=== PATIENT | female | born 1960 | race Caucasian/White ===

== ENCOUNTER 2024-07-16 16:54 | Emergency (ER) | payer SELFPAY ==
[2024-07-16 16:56] VITALS: BP 152/83; PULSE 81; RESP 20; TEMP 36.9; O2SAT 100
--- NOTE | 2024-07-16 17:03 | PC.NURSE ---
Covid culture sent to lab
[2024-07-16 17:07] VITALS: O2SAT 100
[2024-07-16 17:43] LABS: SARS-CoV-2 RNA PCR Negative (Negative)
[2024-07-16 17:44] LABS: Influenza A QL RT-PCR Negative (Negative); Influenza B QL RT-PCR Negative (Negative); RSV RNA, RT-PCR Negative (Negative)
--- NOTE | 2024-07-16 17:47 | ED.URI ---
HPI - URI/Sore Throat General Chief Complaint: Upper Respiratory Infection Stated Complaint: flu like symptoms Time Seen by Provider: 07/16/24 16:58 Source: patient and family Mode of arrival: ambulatory Limitations: no limitations History of Present Illness HPI Narrative: this is a 64-year-old female presents with a 2 day history of fever and chills with some sinus congestion with no shortness of breath no audible wheezing no chest pain no nausea vomiting or abdominal pain. MD elicited complaint: fever and cough Onset (ago): day(s) Consistency: constant Severity: mild Related Data Home Medications ?Medication ?Instructions ?Recorded ?Confirmed ?Last Taken ?Type citalopram 10 mg tablet 10 mg PO DAILY 07/16/24 07/16/24 Unknown History lisinopril 20 mg tablet 20 mg PO DAILY 07/16/24 07/16/24 Unknown History Allergies Allergy/AdvReac Type Severity Reaction Status Date / Time Sulfa (Sulfonamide Allergy Unknown Unknown Verified 07/16/24 17:03 Antibiotics) Review of Systems Review of Systems: All systems reviewed & are unremarkable except as noted in HPI and below PMFSH Past Medical History Medical History Patient denies medical problems Exam Const: General: no acute distress Nutritional Appearance: well nourished Orientation/consciousness: patient oriented x3 Limitations: no limitations HENMT: Head: normal to inspection Eyes: Conjunctivae: conjunctivae normal Neck: Neck: normal visual inspection Chest: Chest palpation & inspection: normal inspection of the chest Resp: Effort & Inspection: normal respiratory effort Auscultation: clear to auscultation bilaterally Cardio: Rate: regular rate Rhythm: regular rhythm GI: GI Palp: Yes Soft to palpation Auscultation: normal bowel sounds : General: Yes bladder normal to palpation Skin: General skin exam: normal color Rashes: no rashes Neuro: General: patient oriented x3, moves all extremities and no meningeal signs Course Course Emergency Course: patient had a negative COVID RSV a and influenza, advised patient to drink plenty of fluids take Tylenol or Motrin and rest and follow up with primary if symptoms persist or worsen. Vital Signs Vital signs: Vital Signs Temperature 36.9 C 07/16/24 16:56 Pulse Rate 81 07/16/24 16:56 Respiratory Rate 20 07/16/24 16:56 Blood Pressure 152/83 H 07/16/24 16:56 Pulse Oximetry 100 07/16/24 16:56 Oxygen Delivery Room Air 07/16/24 16:56 Temperature 36.9 C 07/16/24 16:56 Pulse Rate 81 07/16/24 16:56 Respiratory Rate 20 07/16/24 16:56 Blood Pressure 152/83 H 07/16/24 16:56 Pulse Oximetry 100 07/16/24 17:07 Oxygen Delivery Room Air 07/16/24 17:07 MDM - URI/Sore Throat Lab Data Labs: Lab Results 07/16/24 Range/Units 16:58 Influenza A (RT-PCR) Negative (Negative) Influenza B (RT-PCR) Negative (Negative) RSV (RT-PCR) Negative (Negative) SARS-CoV-2 RNA (RT-PCR) Negative (Negative) Critical Care Time Critical Care Time Critical Care Time: No Discharge Plan Discharge Clinical Impression: Viral infection Patient Disposition: Home, Self-Care Condition: Stable Instructions: Antibiotic Form, Viral Syndrome (ED) Additional Instructions: Advised to take Tylenol or Motrin drink plenty of fluids and see primary in 1 week for further evaluation and treatment. Patient Language: Amharic Prescriptions: No Action Unable to Obtain Home Medications Follow-up/Referrals: Shanna,DENIZ Lord [Primary Care Provider] - Time of Disposition: 17:50
[2024-07-16 17:54] VITALS: BP 148/80; PULSE 80; RESP 17; TEMP 36.9; O2SAT 100
--- OUTSIDE RECORDS SUMMARY | 2024-07-23 23:25 | XMS_ITS | Data Portability ---
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 Plan of Treatment Reminders Order Date Submit Date Provider Last Modified By Organization Details Last Modified Time Details Appointments None recorded. Lab noninvasiv e colorectal cancer DNA + occult blood screening, stool 2020 021 [facility] (Cologuard Orders Only), [address], [place], [address], 10:37:46 CBC 2021 022 [facility], [facility], [address], [place], [address], 06:13:40 CMP, serum or plasma 2021 022 [facility], [facility], [address], [place], [address], 06:13:39 lipid panel, serum 2021 022 [facility], [address] [place] [address], [address], [place], [address], 06:13:41 noninvasiv e colorectal cancer DNA + occult blood screening, QL, stool 2021 022 EBONI [facility] (Cologuard Orders Only), [address], [place], [address], 2 14:37:31 CBC 2023 024 EBONI [facility], [address] [facility], [place], [address], 4 06:21:03 CMP, serum or plasma 2023 024 [facility], [address] [facility], [place], [address], 4 06:21:02 lipid panel, serum 2023 024 [facility], [address] [place] [address], [facility], [place], [address], 4 06:21:01 HbA1c (hemoglobi n A1c), blood 2023 024 [facility] In-Office Order, Internal Use Only DO Not Attach Compendium DO Not Attach Compendium, Do Not Delete/merge, [id number] 4 10:37:14 Referral None recorded. Procedures None recorded. Surgeries None recorded. Imaging None recorded. Medication Orders lisinopril 20 mg tablet 2020 021 EBONI [facility], [address] [place] [address], [address], 1 10:26:07 citalopram 10 mg tablet 2020 021 [facility], [address] [place] [address], [address], 1 10:26:05 lisinopril 20 mg tablet 2021 022 [facility], [address] [place] [address], [address], 2 11:57:17 citalopram 10 mg tablet 2021 022 [facility], [address] [place] [address], [address], 11:57:13 lisinopril 20 mg tablet 2022 023 [facility] [address] [place], [address], 3 12:23:56 citalopram 10 mg tablet 2022 023 [facility] [address] [place], [address], 3 12:23:58 lisinopril 20 mg tablet 2023 024 [facility] [address] [place], [address], 4 10:27:36 citalopram 10 mg tablet 2023 024 [facility] [address] [place], [address], 4 10:27:36 Patient TargetsNo targets recorded. Patient Instructions Encounter Date Encounter Id Patient Instructions Last Modified By Organization Details Last Modified Time 04/21/2022 [id number] learning about high blood pressure jnanney Not available 04/21/2022 15:36:34 10/14/2022 [id number] A healthy lifestyle: care instructions jnanney Not available 10/14/2022 12:23:51 10/06/2023 [id number] learning about high blood pressure jnanney Not available 10/06/2023 10:22:40 Reason for Referral None Reported. Results Created Date Observation Date Name Description Value Unit Range Abnormal Flag Note LastModifiedBy Organization Detail LastModifiedTime 09/19/2021 COLOG UARD cologuard result Cancel led - Duplic ate Order not applic able Not Available [email or web address] (Cologuard Orders Only) [address], [place], [address], 09/19/2021 14:37:31 09/18/19 22 09/20/2021 COMP. METAB OLIC PANEL (14) glucose 74 mg/dL 65-99 Not Available [facility] ([facility]) [address] [place], [address], 09/20/2021 06:13:39 09/18/19 22 09/20/2021 COMP. METAB OLIC PANEL (14) BUN 17 mg/dL 8-27 Not Available [facility] ([facility]) [address] [place], [address], 09/20/2021 06:13:39 09/18/19 22 09/20/2021 COMP. METAB OLIC PANEL (14) creatinine 0.90 mg/dL 0.57-1 .00 Eff ectiv e Febru carlos manuel 2021 [facility] will begin repor ting the 2020 CKD-E PI creat inine equat ion that estim ates kidne y funct ion witho ut a race varia ble. Not Available [facility] ([facility]) [address] [place], [address], 09/20/2021 06:13:39 09/18/19 22 09/20/2021 COMP. METAB OLIC PANEL (14) eGFR if nonafricn AM 69 mL/mi n/1.7 3 >59 Not Available [facility] ([facility]) [address] [place], [address], 09/20/2021 06:13:39 09/18/19 22 09/20/2021 COMP. METAB OLIC PANEL (14) eGFR if africn AM 80 mL/mi n/1.7 3 >59 In accor dance with recom menda tions from the NKF-A SN Task force , [facility] is in the proce ss of updat ing its eGFR calcu latio n to the 2020 CKD-E PI creat inine equat ion that estim ates kidne y funct ion witho ut a race varia ble. Not Available [facility] ([facility]) [address] [place], [address], 09/20/2021 06:13:39 09/18/19 22 09/20/2021 COMP. METAB OLIC PANEL (14) BUN/creatini ne ratio 19 12-28 Not Available [facility] ([facility]) [address] [place], [address], 09/20/2021 06:13:39 09/18/19 22 09/20/2021 COMP. METAB OLIC PANEL (14) sodium 138 mmol/ L 134-14 4 Not Available [facility] ([facility]) [address] [place], [address], 09/20/2021 06:13:39 09/18/19 22 09/20/2021 COMP. METAB OLIC PANEL (14) potassium 4.7 mmol/ L 3.5-5. 2 Not Available [facility] ([facility]) [address] [place], [address], 09/20/2021 06:13:39 09/18/19 22 09/20/2021 COMP. METAB OLIC PANEL (14) chloride 101 mmol/ L 96-106 Not Available [facility] ([facility]) [address] [place], [address], 09/20/2021 06:13:39 09/18/19 22 09/20/2021 COMP. METAB OLIC PANEL (14) carbon dioxide, total 21 mmol/ L 20-29 Not Available [facility] ([facility]) [address] [place], [address], 09/20/2021 06:13:39 09/18/19 22 09/20/2021 COMP. METAB OLIC PANEL (14) calcium 9.2 mg/dL 8.7-10 .3 Not Available [facility] [address] [facility] [place], [address], 09/20/2021 06:13:39 09/18/19 22 09/20/2021 COMP. METAB OLIC PANEL (14) protein, total 7.4 g/dL 6.0-8. 5 Not Available [facility] ([facility]) [address] [facility], [place], [address], 09/20/2021 06:13:39 09/18/19 22 09/20/2021 COMP. METAB OLIC PANEL (14) albumin 4.4 g/dL 3.8-4. 8 Not Available [facility] ([facility]) [address] [facility] [place], [address], 09/20/2021 06:13:39 09/18/19 22 09/20/2021 COMP. METAB OLIC PANEL (14) globulin, total 3.0 g/dL 1.5-4. 5 Not Available [facility] ([facility]) [address] [facility], [place], [address], 09/20/2021 06:13:39 09/18/19 22 09/20/2021 COMP. METAB OLIC PANEL (14) A/G ratio 1.5 1.2-2. 2 Not Available [facility] ([facility]) [address] [facility] [place], [address], 09/20/2021 06:13:39 09/18/19 22 09/20/2021 COMP. METAB OLIC PANEL (14) bilirubin, total 0.2 mg/dL 0.0-1. 2 Not Available [facility] ([facility]) [address] [facility] [place], [address], 09/20/2021 06:13:39 09/18/19 22 09/20/2021 COMP. METAB OLIC PANEL (14) alkaline phosphatase 91 IU/L 44-121 Not Available [facility]) [address] [facility] [place], [address], 09/20/2021 06:13:39 09/18/19 22 09/20/2021 COMP. METAB OLIC PANEL (14) AST (SGOT) 14 IU/L 0-40 Not Available [facility] ([facility]) [address] [facility], [place], [address], 09/20/2021 06:13:39 09/18/19 22 09/20/2021 COMP. METAB OLIC PANEL (14) ALT (SGPT) 10 IU/L 0-32 Not Available [facility] ([facility]) [address] [facility], [place], [address], 09/20/2021 06:13:39 09/18/19 22 09/19/2021 CBC, PLATE LET, NO DIFFE RENTI AL WBC 7.5 x10e3 /uL 3.4-10 .8 Not Available [facility] ([facility]) [address] [place], [address], 09/20/2021 06:13:40 09/18/19 22 09/19/2021 CBC, PLATE LET, NO DIFFE RENTI AL RBC 4.46 x10e6 /uL 3.77-5 .28 Not Available [facility] ([facility]) [address] [place], [address], 09/20/2021 06:13:40 09/18/19 22 09/19/2021 CBC, PLATE LET, NO DIFFE RENTI AL hemoglobin 14.2 g/dL 11.1-1 5.9 Not Available [facility] ([facility]) [address] [place], [address], 09/20/2021 06:13:40 09/18/19 22 09/19/2021 CBC, PLATE LET, NO DIFFE RENTI AL hematocrit 42.1 % 34.0-4 6.6 Not Available [facility] ([facility]) [address] [place], [address], 09/20/2021 06:13:40 09/18/19 22 09/19/2021 CBC, PLATE LET, NO DIFFE RENTI AL MCV 94 fL 79-97 Not Available [facility] ([facility]) [address] [facility], [place], [address], 09/20/2021 06:13:40 09/18/19 22 09/19/2021 CBC, PLATE LET, NO DIFFE RENTI AL MCH 31.8 pg 26.6-3 3.0 Not Available [facility] ([facility]) [address] [facility], [place], [address], 09/20/2021 06:13:40 09/18/19 22 09/19/2021 CBC, PLATE LET, NO DIFFE RENTI AL MCHC 33.7 g/dL 31.5-3 5.7 Not Available [facility] ([facility]) [address] [facility], [place], [address], 09/20/2021 06:13:40 09/18/19 22 09/19/2021 CBC, PLATE LET, NO DIFFE RENTI AL RDW 13.5 % 11.7-1 5.4 Not Available [facility] ([facility]) [address] [place], [address], 09/20/2021 06:13:40 09/18/19 22 09/19/2021 CBC, PLATE LET, NO DIFFE RENTI AL platelets 278 x10e3 /uL 150-45 0 Not Available [facility] ([facility]) [address] [place], [address], 09/20/2021 06:13:40 09/18/19 22 09/19/2021 CBC, PLATE LET, NO DIFFE RENTI AL NRBC PAPER CLEANER Not Available [facility] ([facility]) [address] [place], [address], 09/20/2021 06:13:40 09/18/19 22 09/20/2021 LIPID PANEL cholesterol, total 210 mg/dL 100-19 9 above high normal Not Available [facility] ([facility]) [address] [place], [address], 09/20/2021 06:13:40 09/18/19 22 09/20/2021 LIPID PANEL triglyceride s 204 mg/dL 0-149 above high normal Not Available [facility] ([facility]) [address] [place], [address], 09/20/2021 06:13:40 09/18/19 22 09/20/2021 LIPID PANEL HDL cholesterol 42 mg/dL >39 Not Available [facility] ([facility]) [address] [place], [address], 09/20/2021 06:13:40 09/18/19 22 09/20/2021 LIPID PANEL VLDL cholesterol jun 36 mg/dL 5-40 Not Available [facility] ([facility]) [address] [place], [address], 09/20/2021 06:13:40 09/18/19 22 09/20/2021 LIPID PANEL LDL chol calc ([facility]) 132 mg/dL 0-99 above high normal Not Available [facility] ([facility]) [address] [place], [address], 09/20/2021 06:13:40 09/18/19 22 09/20/2021 LIPID PANEL comment: PAPER CLEANER Not Available [facility] ([facility]) [address] [place], [address], 09/20/2021 06:13:40 09/18/19 22 09/20/2021 CARDI OVASC ULSINTIA REPOR T interpretati on Note Suppl tiffany billings repor t is avail able. Not Available [facility] ([facility]) [address] [place], [address], 09/20/2021 06:13:41 09/18/19 22 09/20/2021 CARDI SANFORD HUDSON T pdf . Not Available [facility] ([facility]) [address], [place], [address], 09/20/2021 06:13:41 10/06/19 24 10/06/2023 LIPID PANEL cholesterol, total 202 mg/dL 100-19 9 above high normal Not Available [address], [address], 10/07/2023 06:21:01 10/06/19 24 10/06/2023 LIPID PANEL triglyceride s 167 mg/dL 0-149 above high normal Not Available [address], [address], 10/07/2023 06:21:01 10/06/19 24 10/06/2023 LIPID PANEL HDL cholesterol 37 mg/dL 40-999 below low normal Not Available [address], [address], 10/07/2023 06:21:01 10/06/1910/06/2023 LIPID PANEL VLDL cholesterol jun 33 mg/dL 5-40 Not Available [address], [address], 10/07/2023 06:21:01 10/06/19 24 10/06/2023 LIPID PANEL LDL chol calc ([facility]) 155 mg/dL 0-99 above high normal Not Available [address], [address], 10/07/2023 06:21:01 10/06/19 24 10/06/2023 COMP. METAB OLIC PANEL (14) glucose 95 mg/dL 70-99 Not Available [address], [address], 10/07/2023 06:21:02 10/06/19 24 10/06/2023 COMP. METAB OLIC PANEL (14) BUN 18 mg/dL 8-27 Not Available [facility] & [address], [address], 10/07/2023 06:21:02 10/06/19 24 10/06/2023 COMP. METAB OLIC PANEL (14) creatinine 1.02 mg/dL 0.76-1 .27 Not Available [address], [address], 10/07/2023 06:21:02 10/06/19 24 10/06/2023 COMP. METAB OLIC PANEL (14) eGFR 62 >=60 Units for eGFR value s are mL/mi n/1.7 3 The eGFR Calcu latio n has not been valid ated for patie nts under the age of 18. If test resul ts are displ ayed for a patie nt under the age of 18, disre nimco that value . Not Available [facility] & [address], [address], 10/07/2023 06:21:02 10/06/19 24 10/06/2023 COMP. METAB OLIC PANEL (14) BUN/creatini ne ratio 18 10-28 Not Available [address], [address], 10/07/2023 06:21:02 10/06/19 24 10/06/2023 COMP. METAB OLIC PANEL (14) sodium 143 mmol/ L 134-14 4 Not Available [address], [address], 10/07/2023 06:21:02 10/06/19 24 10/06/2023 COMP. METAB OLIC PANEL (14) potassium 4.8 mmol/ L 3.5-5. 2 Not Available [address], [address], 10/07/2023 06:21:02 10/06/19 24 10/06/2023 COMP. METAB OLIC PANEL (14) chloride 106 mmol/ L 96-106 Not Available [address], [address], 10/07/2023 06:21:02 10/06/19 24 10/06/2023 COMP. METAB OLIC PANEL (14) carbon dioxide, total 24 mmol/ L 20-29 Not Available [address], [address], 10/07/2023 06:21:02 10/06/19 24 10/06/2023 COMP. METAB OLIC PANEL (14) calcium 9.2 mg/dL 8.7-10 .3 Not Available [address], [address], 10/07/2023 06:21:02 10/06/19 24 10/06/2023 COMP. METAB OLIC PANEL (14) protein, total 7.2 g/dL 6.0-8. 5 Not Available [address], [address], 10/07/2023 06:21:02 10/06/19 24 10/06/2023 COMP. METAB OLIC PANEL (14) albumin 4.1 g/dL 3.8-4. 8 Not Available [address], [address], 10/07/2023 06:21:02 10/06/19 24 10/06/2023 COMP. METAB OLIC PANEL (14) globulin, total 3.1 g/dL 1.5-4. 5 Not Available [address], [address], 10/07/2023 06:21:02 10/06/19 24 10/06/2023 COMP. METAB OLIC PANEL (14) A/G ratio 1.0 1.2-2. 2 below low normal Not Available [address], [address], 10/07/2023 06:21:02 10/06/19 24 10/06/2023 COMP. METAB OLIC PANEL (14) bilirubin, total 0.3 mg/dL 0.0-1. 2 Not Available [address], [address], 10/07/2023 06:21:02 10/06/19 24 10/06/2023 COMP. METAB OLIC PANEL (14) alkaline phosphatase 97 IU/L 44-121 Not Available [address], [address], 10/07/2023 06:21:02 10/06/19 24 10/06/2023 COMP. METAB OLIC PANEL (14) AST (SGOT) 17 IU/L 0-40 Not Available [address], [address], 10/07/2023 06:21:02 10/06/19 24 10/06/2023 COMP. METAB OLIC PANEL (14) ALT (SGPT) 14 IU/L 0-32 Not Available [address], [address], 10/07/2023 06:21:02 10/06/19 24 10/06/2023 CARDI OVASC ULAR REPOR T interpretati on Note Suppl ement al repor t is avail able. Not Available [address], [address], 10/07/2023 06:21:03 10/06/19 24 10/06/2023 CARDI OVASC ULAR REPOR T pdf . Not Available [address], [address], 10/07/2023 06:21:03 10/06/19 24 10/06/2023 CBC, PLATE LET, NO DIFFE RENTI AL WBC 7.8 x10e3 /uL 3.4-10 .8 Not Available [address], [address], 10/07/2023 06:21:03 10/06/19 24 10/06/2023 CBC, PLATE LET, NO DIFFE RENTI AL RBC 4.50 x10e6 /uL 3.77-5 .28 Not Available [address], [address], 10/07/2023 06:21:03 10/06/19 24 10/06/2023 CBC, PLATE LET, NO DIFFE RENTI AL hemoglobin 14.2 g/dL 11.1-1 5.9 Not Available [address], [address], 10/07/2023 06:21:03 10/06/1910/06/2023 CBC, PLATE LET, NO DIFFE RENTI AL hematocrit 44.2 % 34.0-4 6.6 Not Available [address], [address], 10/07/2023 06:21:03 10/06/19 24 10/06/2023 CBC, PLATE LET, NO DIFFE RENTI AL MCV 98 fL 79-97 above high normal Not Available [address], [address], 10/07/2023 06:21:03 10/06/1910/06/2023 CBC, PLATE LET, NO DIFFE RENTI AL MCH 31.6 pg 26.6-3 3.0 Not Available [address], [address], 10/07/2023 06:21:03 10/06/19 24 10/06/2023 CBC, PLATE LET, NO DIFFE RENTI AL MCHC 32.1 g/dL 31.5-3 5.7 Not Available [address], [address], 10/07/2023 06:21:03 10/06/19 24 10/06/2023 CBC, PLATE LET, NO DIFFE RENTI AL RDW 13.4 % 11.5-1 4.5 Not Available [address], [address], 10/07/2023 06:21:03 10/06/19 24 10/06/2023 CBC, PLATE LET, NO DIFFE RENTI AL platelets 285 x10e3 /uL 150-45 0 Mean Plate let Volum e 10.9 fL 8.9-1 2.7 N Not Available [address], [address], 10/07/2023 06:21:03 10/06/19 24 10/06/2023 CBC, PLATE LET, NO DIFFE RENTI AL NRBC 0 % 0-0 Not Available [address], [address], 10/07/2023 06:21:03 10/06/19 24 10/06/2023 HbA1c (hemo globi n A1c), blood HbA1c 5.8 Not Available In-Office Order Internal Use Only DO Not Attach Compendium DO Not Attach Compendium, Do Not Delete/merge, [id number] 10/06/2023 10:23:04 Result Notes None recorded. Problems Name Problem SNOMED Code Status Onset Date Resolution Date Notes Provider Name and Address Organization Details Recorded Time Essential hypertension 50139213 Active 2020 Olga Otero PA-C Attn: Jean g,[address] [place], [address], [facility] - SI 10:16:22 Depressive disorder 53507488 Active Olga Otero PA-C Attn: Jean burt,[address], [place], [address], [facility] 6 12:56:11 Hand wart 922322402 Active Olga Otero PA-C Attn: Jean burt,[address], [place], [address], [facility] 6 12:56:11 Problem Notes None recorded. Procedures Surgical History Date Name Laterality Status Provider Name and Address Organization Details Recorded Time Tonsillectomy completed Marsha Henriquez MA [facility] 07/25/2014 15:02:56 Other completed Marsha Henriquez MA [facility] 07/25/2014 15:02:56 Imaging Results None recorded. Procedure Notes None recorded. Medical Equipment None Reported. Allergies Allergen ID Allergen Name Allergen Category Reaction Reaction Severity Criticality Documentation Date Start Date Code Code System Note Provider Name and Address Organization Details Recorded Time 80803 Substance with sulfonami de structure and antibacte rial mechanism of action (substanc e) medicatio n Not available Not available Not available 07/25/2014 25246 8003 SNOMED Marsha Henriquez MA null, [facility] 4 15:02:56 Medications Name Sig Start Date Stop Date Status Note LastModified by Organization Details LastModified Time citalopram 10 mg tablet TAKE 1 TABLET BY MOUTH ONCE DAILY active Not Available Not Available No t Available Keflex 500 mg capsule Take 1 capsule every 8 hours by oral route for 10 days. 03/31 completed Not Available Not Available Not Available lisinopril 20 mg tablet TAKE 1 TABLET BY MOUTH ONCE DAILY active Not Available Not Available No t Available ciprofloxaci n 500 mg tablet Take 1 tablet every 12 hours by oral route for 10 days. 02/20 completed Not Available Not Available Not Available amoxicillin 500 mg tablet Take 1 tablet every 8 hours by oral route for 10 days. 04/15 completed Not Available Not Available Not Available Vitals Date Recorded Body height Body temperature Oxygen saturation Oxygen saturation in Arterial blood by Pulse oximetry Heart rate Body mass index (BMI) Body weight Systolic blood pressure Diastolic blood pressure Provider Name and Address Organization Details Last Updated DateTime 1 157.48 cm 97.3 [degF] 97 % 97 % 81 /min 24.2 kg/m2 82397.9 9 g 122 mm[Hg] 80 mm[Hg] Melody Linares MA [facility] 1 10:12:23 Date Recorded Body height Body temperature Oxygen saturation Oxygen saturation in Arterial blood by Pulse oximetry Heart rate Body mass index (BMI) Body weight Systolic blood pressure Diastolic blood pressure Provider Name and Address Organization Details Last Updated DateTime 2 157.48 cm 97.7 [degF] 99 % 99 % 79 /min 24.1 kg/m2 46248.1 9 g 124 mm[Hg] 78 mm[Hg] Simran conley MA [facility] 2 11:29:32 Date Recorded Body height Body mass index (BMI) Body weight Body temperature Oxygen saturation Oxygen saturation in Arterial blood by Pulse oximetry Heart rate Systolic blood pressure Diastolic blood pressure Provider Name and Address Organization Details Last Updated DateTime 2 157.48 cm 25.4 kg/m2 49420.3 4 g 97.2 [degF] 98 % 98 % 87 /min 122 mm[Hg] 60 mm[Hg] Marsha june MA [facility] 2 15:24:15 Date Recorded Body height Body mass index (BMI) Body weight Oxygen saturation Oxygen saturation in Arterial blood by Pulse oximetry Heart rate Body temperature Systolic blood pressure Diastolic blood pressure Provider Name and Address Organization Details Last Updated DateTime 3 157.48 cm 25.2 kg/m2 99698.7 5 g 98 % 98 % 104 /min 98.2 [degF] 138 mm[Hg] 77 mm[Hg] Marsha june MA [facility] 3 12:14:18 Date Recorded Body height Body mass index (BMI) Body weight Oxygen saturation Oxygen saturation in Arterial blood by Pulse oximetry Heart rate Systolic blood pressure Diastolic blood pressure Provider Name and Address Organization Details Last Updated DateTime 4 157.48 cm 24.6 kg/m2 35601.4 8 g 98 % 98 % 84 /min 160 mm[Hg] 79 mm[Hg] Jeanie Dominguez MA [facility] 4 10:08:45 Social History Question Answer Notes LastModified by Organizat ion Details LastModified Time Tobacco Smoking Status Current Every Day Smoker Marsha Henriquez MA null, [facility] 07/25/2014 15:02:55 Do You Have An Advance Directive? No Information not available 10/24/2020 What Is Your Level Of Alcohol Consumption? None Information not available 07/25/2020 Are You Blind Or Do You Have Difficulty Seeing? No Information not available 10/24/2020 What Is Your Level Of Caffeine Consumption? Occasional Information not available 04/21/2022 How Much Tobacco Do You Chew? None Information not available 07/05/2019 In The 14 Days Before Symptom Onset, Have You Had Close Contact With A Laboratory-confir med COVID-19 While That Case Was Ill? No Information not available 10/24/2020 In The 14 Days Before Symptom Onset, Have You Had Close Contact With A Person Who Is Under Investigation For COVID-19 While That Person Was Ill? No Information not available 10/24/2020 Have You Been To An Area Known To Be High Risk For COVID-19? No Information not available 10/24/2020 Are You Currently Employed? Yes Information not available 07/25/2020 Are You Deaf Or Do You Have Serious Difficulty Hearing? No Information not available 10/24/2020 What Type Of Diet Are You Following? REGULAR Information not available 07/25/2020 Do You Or Have You Ever Used E-cigarettes Or Vape? Never Used Electronic Cigarettes Information not available 07/05/2019 What Is Your Occupation? [employer] Information not available 04/21/2022 Live Alone Or With Others? With Others Information not available 07/25/2020 What Was The Date Of Your Most Recent Tobacco Screening? 10/06/2023 Information not available 10/06/2023 What Is Your Relationship Status? Information not available 10/24/2020 Do You Use Your Seat Belt Or Car Seat Routinely? Yes Information not available 10/24/2020 Do You Have Smoke And Carbon Monoxide Detectors In Your Home? Yes Information not available 02/20/2021 At What Age Did You Start Smoking Tobacco? 23 Information not available 07/05/2019 Are You Passively Exposed To Smoke? Yes Information no t available 02/20/2021 Do You Or Have You Ever Used Smokeless Tobacco? Never Used Smokeless Tobacco Information not available 07/05/2019 How Much Tobacco Do You Smoke? 1 PPD Information not available 07/05/2019 General Stress Level Low Information not available 07/25/2020 Do You Feel Stressed (tense, Restless, Nervous, Or Anxious, Or Unable To Sleep At Night)? CK9969-3 Information not available 04/21/2022 Do You Use Any Illicit Or Recreational Drugs? No Information not available 10/24/2020 Has Tobacco Cessation Counseling Been Provided? Yes Information not available 02/20/2021 On What Date Was Tobacco Cessation Counseling Provided? 10/06/2023 Information not available 10/06/2023 How Many Years Have You Smoked Tobacco? 34 Information not available 07/05/2019 Do You Or Have You Ever Used Any Other Forms Of Tobacco Or Nicotine? No Information not available 10/24/2020 Sex: Unknown Functional Status Question Answer Note LastModified by Organization D etails LastModified Time Are you able to care for yourself? Yes Information n ot available 07/25/2020 Mental Status None recorded. Family History Relationship Description Onset Age of this Age Resolved Age Notes LastModified by Organization Details LastModified Time Mother Hypertensive disorder [email or web address] Not available 04/26 12:26:46 Medical History Condition Response Coronary Artery Disease N Other N Atrial Fibrillation N High Blood Pressure Y Depression Y COPD N Blood Clots N Anxiety Disorder N Muscle, Joint, or Bone Problems N Acid Reflux (GERD) N Cancer N Stroke N Headaches N Kidney or Bladder Problems N Eating Disorder N Skin Problems N Asthma N Allergies N Substance Abuse N Hepatitis N ADHD N High Cholesterol N Liver Disease N Schizophrenia N Thyroid Problems N GI Problems N Anemia N Heart Attack (GA) N Diabetes N Seizures/Epilepsy N Heart Failure N Osteoporosis N Gynecological History Statement/Question Response Date of Last Pap Smear Date of Last Mammogram Obstetrics History GPAL:G 0 P 0 0 0 0 Immunizations Vaccine Type Date Status Note Provider Nam e and Address Organization Details Recorded Time COVID-19, mRNA, LNP-S, PF, 30 mcg/0.3 mL dose 01/29/2021 completed Melody Linares [place] null, [place] - [facility] 02/20/2021 10:09:38 Past Encounters Encounter ID Performer Location Encounter Start Date Encounter Closed Date Diagnosis/Indication Diagnosis SNOMED-CT Code Diagnosis ICD10 Code [id number] Alma Cotto [facility] [address] [place] [address] 07/25/2014 14:55:26 07/26/2014 12:25:58 Depressive disorder [id number] Estefani Burris [facility] [address] [place] [address] 03/09/2015 14:54:49 03/09/2015 15:32:19 Depressive disorder [id number] Olga Otero PA-C [facility] [address] [place] [address] 04/23/2016 13:51:48 04/23/2016 15:02:11 Depressive disorder 81309881 F32.8 [id number] Olga Otero PA-C [facility] [address] [place] [address] 05/07/2016 11:49:51 05/07/2016 13:53:31 Depressive disorder 93186005 F32.89 [facility] [place] wart [id number] B07. 8 [id number] Olga Otero PA-C [facility] [address] [place] [address] 04/15/2017 10:52:59 04/15/2017 13:59:00 Depressive disorder 46734129 F32.89 Screening for malignant neoplasm of colon 184957738 Z12.11 Screening for malignant neoplasm of breast 102874110 Z12.31 Chronic depression 20294 0009 F34.1 [id number] Olga Otero PA-C [facility] [address] [place] [address] 09/21/2017 11:51:25 09/21/2017 14:33:10 Acute maxillary sinusitis 52332281 J01.01 [id number] Sammie Vaz MA [facility] [address] [place] [address] 03/31/2018 14:54:47 03/31/2018 15:43:48 Chronic depression 197350148 F34.1 Depressive disorder 3548 9007 F32.89 [id number] Olga Otero PA-C [facility] [address] [place] [address] 07/05/2019 10:38:17 07/05/2019 12:25:43 Depressive disorder 50575912 F32.89 Essential hypertension 44119908 I10 [id number] PATRICIA Holder [facility] [address] [place] [address] 07/25/2020 10:53:46 07/26/2020 09:25:28 Essential hypertension 87716685 I10 Chronic depression 60924 0009 F34.1 Depressive disorder 3548 9007 F32.89 [id number] PATRICIA Holder [facility] [address] [place] [address] 10/24/2020 09:30:08 10/25/2020 07:39:26 Depressive disorder 86961276 F32.89 Essential hypertension 61254517 I10 [id number] PATRICIA Holder [address] [place] [address] 02/20/2021 09:59:15 02/20/2021 11:07:11 Depressive disorder 25790299 F32.89 Essential hypertension 72361777 I10 Screening for malignant neoplasm of colon 620914327 Z12.11 [id number] PATRICIA Holder [facility] [address] [place] [address] 09/18/2021 11:03:34 09/18/2021 12:16:02 Screening for malignant neoplasm of colon 652482747 Z12.11 Essential hypertension 54616584 I10 Depressive disorder 3548 9007 F32.89 [id number] PATRICIA Holder [facility] [address] [place] [address] 04/21/2022 15:13:15 04/21/2022 16:00:09 Essential hypertension 92872766 I10 [id number] Olga Otero PA-C [facility] [address] [place] [address] 10/14/2022 11:27:15 10/20/2022 12:57:37 Depressive disorder 38160582 F32.89 Essential hypertension 75483322 I10 Overweight 455471316 E66 .3 [id number] Olga Otero PA-C [facility] [address] [place] [address] 10/06/2023 09:45:20 10/10/2023 12:23:37 Essential hypertension 21203870 I10 Mixed anxi ety and depressive disorder 278116129 F41.8 Screening for malignant neoplasm of colon 734263505 Z12.11 Depressive disorder 3548 9007 F32.89 Health Concerns Section Related Observation LastModified by Organization Detai ls LastModified Time None Recorded Concern Status LastModified by Organization Details LastModified Time None Recorded Advance Directives Directive N: Payers Encounter Date Sequence Insurance Name Policy Number Policy Gonsales Covered Member ID Gonsales Member ID Guarantor Name 02/20/2021 1 [facility] ON OR AFTER 01/24/21 (MEDICAID REPLACEMENT - HMO) Stacey Finnegan [id number] Stacey Finnegan 09/18/2021 1 [facility] ON OR AFTER 01/24/21 (MEDICAID REPLACEMENT - HMO) Stacey Finnegan [id number] Stacey Finnegan 04/21/2022 1 [facility] ON OR AFTER 01/24/21 (MEDICAID REPLACEMENT - HMO) Stacey Finnegan [id number] Stacey Finnegan 10/14/2022 1 [facility] ON OR AFTER 01/24/21 (MEDICAID REPLACEMENT - HMO) Stacey Finnegan [id number] Stacey Finnegan 10/06/2023 1 [facility] ON OR AFTER 01/24/21 (MEDICAID REPLACEMENT - HMO) Stacey Finnegan [id number] Stacey Finnegan Notes Date Note Type Note Provider Name and Address Organization Details Recorded Time 02/20/2021 text/html Presents for refill on medications. No new complaints. Olga Otero PA-C Attn: Accounting,[address] [facility], [place], [address], [facility] 02/20/2021 10:27:16 09/18/2021 text/html needs labs and bloodwork for meds... Olga Otero PA-C Attn: Accounting,[address] [facility], [place], [address], [facility] 09/18/2021 11:58:52 04/21/2022 text/html needs check up... Olga Otero PA-C Attn: Accounting,[address] [facility], [place], [address], [facility] 04/21/2022 15:36:58 10/14/2022 text/html 3 month follow-up...doin g well except lifted a heavy box overhead with arm pain...refuses labs today... Olga Otero PA-C Attn: Accounting,[address] [facility], [place], [address], [facility] 10/14/2022 12:25:12 10/06/2023 text/html annual check up no complaints...say s her blod pressure is up due to her mom Olga Otero PA-C Attn: Accounting,[address] [place], [address], [facility] 10/06/2023 10:27:20 OBGyn Episode No OBEpisode recorded.
== END 2024-07-16 17:54 | disposition home or self-care (01) ==
PROVIDERS: Emergency Provider Emergency Medicine; PCP Physician Assistant
DX: B34.9 Viral infection, unspecified (principal); Z20.822 Contact with and (suspected) exposure to COVID-19
CPT/HCPCS: 87637; 99282